=== PATIENT | male | born 1985 | race Hispanic/Latino ===

== ENCOUNTER 2019-05-29 10:41 | Emergency (ER) | payer BC, SELFPAY ==
[2019-05-29] MEDS ORDERED: Meclizine HCl 25 MG TAB ONE (11:32)
[2019-05-29] MEDS ORDERED: Ondansetron ODT 4 MG TAB ONE (11:32)
== END 2019-05-29 12:00 | disposition home or self-care (01) ==
LOC: EDBD 10:41 → MADERS 10:41
DX: R42 Dizziness and giddiness (principal)
CPT/HCPCS: 99283; J8597; Q0162

== ENCOUNTER 2021-06-03 13:08 | Inpatient (IN) | payer OTHER, SELFPAY ==
[2021-06-03] MEDS ORDERED: Ketorolac Tromethamine 30 MG/ML VIAL ONE (13:42)
[2021-06-03 14:08] LABS: #Lymphocytes 0.8 thou/uL (1.20-3.40); #Monocytes 0.2 thou/uL (0.11-0.59); #Neutrophils 4.3 thou/uL (1.40-6.50); %Basophils 0.3 % (0.0-1.0); %Lymphocytes 15.1 % (21.0-51.0); %Monocytes 2.9 % (0.0-10.0); %Neutrophils 81.7 % (42.0-75.0); Hemoglobin 14.8 g/dL (14.0-18.0); Mean Corpuscular HGB CONC 30.5 g/dL (32.0-36.0); Mean Corpuscular Hemoglobin 25.4 pg (27.0-31.0); Mean Corpuscular Volume 83.4 fL (78.0-98.0); Mean Platelet Volume 7.6 fL (7.4-10.4); Platelet Count 229 thou/uL (130-400); RBC Distribution Width 13.1 % (11.5-14.5); White Blood Cell (WBC) Count 5.2 thou/uL (4.8-10.8)
[2021-06-03 14:30] LABS: ALT (SGPT) 35 U/L (8-55); AST (SGOT) 39 U/L (5-34); Albumin 3.5 g/dL (3.5-5.0); Alkaline Phosphatase 69 U/L (40-110); Anion Gap 13 mmol/L (10-20); BUN (Urea Nitrogen) 11 mg/dL (8.9-20.6); Bilirubin, Total 0.6 mg/dL (0.2-1.2); Calc. Creatinine Clearance 0 mL/min (70-130); Calcium 8.2 mg/dL (7.8-10.44); Carbon Dioxide 25 mmol/L (22-29); Chloride 103 mmol/L (98-107); Glucose 111 mg/dL (70-105); Magnesium 1.9 mg/dL (1.6-2.6); Potassium 4.2 mmol/L (3.5-5.1); Protein, Total 6.5 g/dL (6.0-8.3); Sodium 137 mmol/L (136-145)
[2021-06-03 14:37] LABS: Base Excess-Venous 1.4 mmol/L (-2.0 to 3.0); Bicarbonate (HCO3v) 28.3 mmol/L (22.0-28.0); CO2 Tension (PvCO2) 51.5 mmHg (42.0-51.0); Calcium, Ionized 1.08 mmol/L (1.15-1.33); Chloride 105 mmol/L (98-107); Hemoglobin - Calc 16.8 g/dL (14.0-18.0); Potassium 4.2 mmol/L (3.5-5.1); Sodium 139 mmol/L (138-145); T. Carbon Dioxide 29.9 mmol/L (22.0-28.0); vO2 Saturation-calc 93.5 % (60.0-85.0)
[2021-06-03] MEDS ORDERED: cefTRIAXone\\ROCEPHIN 1 GM VIAL ONE (16:05)
[2021-06-03] MEDS ORDERED: Azithromycin 500 MG VIAL ONE (16:05)
[2021-06-03] MEDS ORDERED: Sodium Chloride 0.9% 250 ML 250 ML ONE (16:05)
[2021-06-03] MEDS ORDERED: Sodium Chloride 0.9% 100 ML ONE (16:05)
[2021-06-03] MEDS ORDERED: Ondansetron PF 4 MG/2 ML Vial IVP PRN (16:26)
[2021-06-03] MEDS ORDERED: Ondansetron ODT 4 MG TAB PO PRN (16:26)
[2021-06-03] MEDS ORDERED: Acetaminophen 500 MG TAB PO PRN (16:41)
[2021-06-03 18:00] VITALS: BMI 41.3
[2021-06-03 19:24] LABS: SARS-CoV-2 NAA Rapid Test DETECTED (NotDetected)
[2021-06-03] MEDS: Guaifenesin DM 100-10/5 ML UDCUP PO PRN (20:53)
[2021-06-04 05:32] LABS: #Lymphocytes 0.7 thou/uL (1.20-3.40); #Monocytes 0.3 thou/uL (0.11-0.59); #Neutrophils 2.9 thou/uL (1.40-6.50); %Basophils 0.2 % (0.0-1.0); %Lymphocytes 18.6 % (21.0-51.0); %Neutrophils 74.1 % (42.0-75.0); Hemoglobin 15.3 g/dL (14.0-18.0); Mean Corpuscular HGB CONC 31.5 g/dL (32.0-36.0); Mean Corpuscular Hemoglobin 26.1 pg (27.0-31.0); Mean Corpuscular Volume 82.9 fL (78.0-98.0); Platelet Count 242 thou/uL (130-400); RBC Distribution Width 12.8 % (11.5-14.5); Red Blood Cell (RBC) Count 5.86 mill/uL (4.70-6.10)
[2021-06-04 05:42] LABS: Anion Gap 14 mmol/L (10-20); BUN (Urea Nitrogen) 13 mg/dL (8.9-20.6); Calc. Creatinine Clearance 249 mL/min (70-130); Calcium 8.8 mg/dL (7.8-10.44); Carbon Dioxide 27 mmol/L (22-29); Chloride 102 mmol/L (98-107); Glucose 147 mg/dL (70-105); Potassium 4.3 mmol/L (3.5-5.1); Sodium 139 mmol/L (136-145)
[2021-06-04] MEDS: Ibuprofen 800 MG TAB PO PRN ×2 (08:28→21:25)
[2021-06-04] MEDS: Guaifenesin DM 100-10/5 ML UDCUP PO PRN ×3 (08:29→21:24)
[2021-06-04] MEDS: Enoxaparin Sodium 40 MG/0.4 ML SYRINGE SC SCH (08:29)
[2021-06-04] MEDS ORDERED: Dexamethasone 4 MG TAB PO SCH (12:45)
[2021-06-04] MEDS: cefTRIAXone\\ROCEPHIN 1 GM in Sodium Chloride 0.9% 100 ML IVPB SCH (15:35)
[2021-06-04] MEDS: Albuterol 200 PUFF (6.7GM INHALER) INH SCH ×2 (16:59→21:24)
[2021-06-04] MEDS ORDERED: Azithromycin 500 MG in Sodium Chloride 0.9% 250 ML 250 ML IVPB SCH (17:00)
[2021-06-05] MEDS: Albuterol 200 PUFF (6.7GM INHALER) INH SCH ×6 (01:00→21:09)
[2021-06-05] MEDS: Dexamethasone 4 MG TAB PO SCH (08:45)
[2021-06-05] MEDS: Enoxaparin Sodium 40 MG/0.4 ML SYRINGE SC SCH (08:45)
[2021-06-05] MEDS: Guaifenesin DM 100-10/5 ML UDCUP PO PRN ×2 (08:45→17:01)
[2021-06-05] MEDS: Ibuprofen 800 MG TAB PO PRN ×2 (08:45→17:01)
[2021-06-05] MEDS ORDERED: Benzonatate 100 MG CAP PO PRN (15:55)
[2021-06-05] MEDS ORDERED: Promethazine 25 MG TAB PO PRN (16:04)
[2021-06-05] MEDS ORDERED: Azithromycin 250 MG TAB PO SCH (16:15)
[2021-06-05] MEDS: cefTRIAXone\\ROCEPHIN 1 GM in Sodium Chloride 0.9% 100 ML IVPB SCH (17:54)
[2021-06-05] MEDS: Benzonatate 100 MG CAP PO SCH (21:08)
[2021-06-06] MEDS: Albuterol 200 PUFF (6.7GM INHALER) INH SCH ×4 (01:00→12:41)
[2021-06-06] MEDS: Ibuprofen 800 MG TAB PO PRN (08:30)
[2021-06-06] MEDS: Benzonatate 100 MG CAP PO SCH ×2 (08:31→14:17)
[2021-06-06] MEDS: Dexamethasone 4 MG TAB PO SCH (08:31)
[2021-06-06] MEDS: Enoxaparin Sodium 40 MG/0.4 ML SYRINGE SC SCH ×2 (08:32→08:37)
[2021-06-06] MEDS ORDERED: Azithromycin 250 MG TAB PO SCH (09:00)
[2021-06-06 10:02] VITALS: BP 117/63
[2021-06-06 13:52] VITALS: TEMP 98.4
== END 2021-06-06 14:51 | disposition home or self-care (01) | DRG 871 ==
LOC: MADERS 13:08 → OBSVTOIN 16:10 → MADMS 16:10
PROVIDERS: ADMIT Family Medicine; ATTEND Family Medicine
PROC: 8E0ZXY6 Isolation (ICD-10-PCS; principal; 2021-06-03)
DX: A41.9 Sepsis, unspecified organism (principal); U07.1 COVID-19; J12.82 Pneumonia due to coronavirus disease 2019; Z68.41 Body mass index [BMI] 40.0-44.9, adult; R09.02 Hypoxemia; G47.34 Idiopathic sleep related nonobstructive alveolar hypoventilation; G47.33 Obstructive sleep apnea (adult) (pediatric); E66.01 Morbid (severe) obesity due to excess calories; Z98.890 Other specified postprocedural states
CPT/HCPCS: 0240U; 36415; 71045; 80048; 80053; 82330; 82803; 83605; 83735; 83880; 84484; 85025; 87040; 93005; 96365; 96367; 96375; G0378; J0456; J0696; J1650; J1885; J3490; J7050; J8540

== ENCOUNTER 2021-12-18 19:46 | Emergency (ER) | payer BC, SELFPAY ==
[2021-12-18] MEDS ORDERED: Bacitracin 1 PK ONE (20:33)
== END 2021-12-18 20:40 | disposition home or self-care (01) ==
LOC: MADERS 19:46
DX: I83.891 Varicose veins of right lower extremity with other complications (principal)
CPT/HCPCS: 99283